=== PATIENT | female | born 1985 | race Caucasian/White ===

== ENCOUNTER 2022-06-12 07:50 | Emergency (ER) | payer OTHER ==
[2022-06-12] MEDS ORDERED: hydrOXYzine 25 MG TAB ONE (08:19)
[2022-06-12] MEDS ORDERED: methylPREDNISolone Sod Succ/PF 125 MG/2 ML VIAL ONE (08:19)
[2022-06-12] MEDS ORDERED: Famotidine/PF 20 mg/2ml Vial ONE (08:19)
== END 2022-06-12 10:14 | disposition home or self-care (01) ==
LOC: ERS 07:50
DX: L03.317 Cellulitis of buttock (principal); I10 Essential (primary) hypertension
CPT/HCPCS: 96374; 96375; J2930; S0028

== ENCOUNTER 2022-09-13 08:13 | Emergency (ER) | payer OTHER ==
[2022-09-13] MEDS ORDERED: predniSONE 20 MG TAB ONE (09:36)
[2022-09-13] MEDS ORDERED: Famotidine 20 MG TAB ONE (09:36)
== END 2022-09-13 10:22 | disposition home or self-care (01) ==
LOC: ERS 08:13
DX: L23.7 Allergic contact dermatitis due to plants, except food (principal); I10 Essential (primary) hypertension
CPT/HCPCS: 99283; J7512